=== PATIENT | male | born 1960 | race Caucasian/White ===

== ENCOUNTER 2024-09-08 19:18 | Emergency (ER) | payer OTHER ==
[~2024-09-08 19:18] MED LIST: Iopamidol 370 76% 100 ML VIAL ONE
[2024-09-08 21:05] LABS: #Basophils 0.06 10x3/uL (0.0-0.2); #Eosinophils 0.06 10x3/uL (0.0-0.5); #Monocytes 0.64 10x3/uL (0.0-1.1); #Neutrophils 3.81 10x3/uL (1.5-8.4); %Lymphocytes 23.5 % (18.0-47.0); %Monocytes 10.6 % (0.0-10.0); %Neutrophils 63.4 % (40.0-75.0); Hematocrit 37.3 % (38.8-50.0); Hemoglobin 13.7 g/dL (13.5-17.5); Mean Corpuscular HGB CONC 36.7 g/dL (32.0-36.0); Mean Corpuscular Hemoglobin 44.3 pg (27.0-33.0); Mean Corpuscular Volume 120.7 fL (81.2-95.1); Mean Platelet Volume 10.3 fL (7.4-10.4); Platelet Count 347 10x3/uL (150-450); RBC Distribution Width 13.2 % (11.5-14.5); Red Blood Cell (RBC) Count 3.09 10x6/uL (4.32-5.72)
[2024-09-08 21:38] LABS: ALT (SGPT) 17 U/L (8-55); AST (SGOT) 22 U/L (5-34); Albumin 3.6 g/dL (3.4-4.8); Alkaline Phosphatase 64 U/L (40-110); Anion Gap 13 mmol/L (10-20); BUN (Urea Nitrogen) 15 mg/dL (8.4-25.7); Bilirubin, Total 0.2 mg/dL (0.2-1.2); Calc. Creatinine Clearance 0 mL/min (70-130); Calcium 9.7 mg/dL (7.8-10.44); Carbon Dioxide 28 mmol/L (23-31); Chloride 105 mmol/L (98-107); Estimated GFR 70; Globulin 3.2 g/dL (2.4-3.5); Glucose 85 mg/dL (80-115); Protein, Total 6.8 g/dL (5.8-8.1); Sodium 142 mmol/L (136-145)
[2024-09-08 21:49] LABS: Macrocytosis MODERATE=16-30 cells (100X) (0-5/hpf)
[2024-09-08 21:50] LABS: Platelet Adequacy Comment Appears Adequate
== END 2024-09-08 22:55 | disposition home or self-care (01) ==
LOC: CSHERS 19:18
DX: I77.77 Dissection of artery of lower extremity (principal); R20.2 Paresthesia of skin; F17.200 Nicotine dependence, unspecified, uncomplicated
CPT/HCPCS: 80053; 83880; 85025; Q9967